=== PATIENT | male | born 1960 | race Hispanic/Latino ===

== ENCOUNTER 2017-03-01 08:07 | Emergency (ER) | payer MEDICAID ==
[2017-03-01 08:09] VITALS: RESP 18; TEMP 98.4
[2017-03-01 08:10] VITALS: BMI 31.1
[2017-03-01] MEDS ORDERED: HYDROmorphone 0.5 mg/0.5 ml ISec IVP STA ×3 (09:04→11:29)
[2017-03-01 09:24] LABS: BASO # 0.1 K/uL (0.0-0.2); BASO % 0.5 % (0.0-2.0); EOS # 0.2 K/uL (0.0-0.7); EOS % 2.4 % (0.0-4.0); HEMATOCRIT 38.1 % (35.0-51.0); LYMPH % 20.9 % (20.0-40.0); MEAN CELL VOLUME 81.7 fl (80.0-94.0); MEAN CORPUSCULAR HEMOGLOBIN 26.8 pg (27.0-31.0); MEAN CORPUSCULAR HGB CONC 32.8 g/dL (33.0-37.0); MEAN PLATELET VOLUME 9.2 fl (7.2-11.7); MONO # 0.8 K/uL (0.0-0.8); MONO % 7.9 % (0.0-10.0); NEUT # 6.7 K/uL (1.8-7.0); NEUT % 68.3 % (50.0-75.0); RED CELL DISTRIBUTION WIDTH 13.6 % (11.5-14.5); WHITE BLOOD COUNT 9.7 K/uL (4.8-10.8)
[2017-03-01 09:35] LABS: BLOOD UREA NITROGEN 17 mg/dl (9-20); CALCIUM 9.3 mg/dL (8.4-10.2); CARBON DIOXIDE 27 mmol/L (22-30); CHLORIDE 98 mmol/L (98-107); GFR AFRICAN-AMERICAN > 60; GLUCOSE,RANDOM 107 mg/dL (75-110); SODIUM 135 mmol/l (132-148)
--- NOTE | 2017-03-01 09:51 | ED PDOC ---
HPI: Headache Time Seen by Provider: 03/01/17 08:41 Chief Complaint (Nursing): Headache Chief Complaint (Provider): Headache History Per: Patient History/Exam Limitations: no limitations Onset/Duration Of Symptoms: Days (1) Pain Scale Rating Of: 10 Additional Complaint(s): Patient is 57 y/o male with a past medical history of vertigo and hypertension presenting to the emergency department for a persistent headache x 1 day status post neurosurgery x1 week ago; patient with no confusion but pain rated 10/10. Reports that he had an eight-hour long craniotomy on 02/23/17 in which an arachnoid cyst was removed, followed by three nights in the ICU, and then went home on 02/26/17 feeling ok. Denies confusion or other complaints. Prior to this surgery, the patient was on Percocet 5/325. He also quit smoking prior to the neurosurgery. Pt's pain medication (Percocet 5/325) was not increased after the surgery. No fever. Pt describes the head pain as pounding. No other complaints at this time. Neurosurgeon: Dr. Augustus Paul PCP: Dr. Alexus Adkins Past Medical History Reviewed: Historical Data, Nursing Documentation, Vital Signs Vital Signs: Last Vital Signs Temp 98.4 F 03/01/17 08:09 Pulse 95 H 03/01/17 08:09 Resp 18 03/01/17 08:09 BP 122/80 03/01/17 08:09 Pulse Ox 97 03/01/17 08:09 - Medical History PMH: Anxiety, Depression, Hiatal Hernia, HTN Denies: Chronic Kidney Disease Other PMH: Vertigo, arachnoid cyst, hearing loss - Surgical History Surgical History: Appendectomy, Hernia Repair - Family History Family History: States: Unknown Family Hx - Social History Current smoker - smoking cessation education provided: Yes Alcohol: None Drugs: Denies - Immunization History Hx Tetanus Toxoid Vaccination: No Hx Influenza Vaccination: No Hx Pneumococcal Vaccination: No - Home Medications Home Medications: Ambulatory Orders Medication Instructions Recorded Docusate [Colace] 100 mg PO Q6 PRN #0 cap 03/19/16 Ibuprofen [Motrin Tab] 200 mg PO Q6 PRN #0 tab 03/19/16 oxyCODONE/Acetaminophen [Percocet 1 ea PO Q6 PRN #0 tab 03/19/16 5/325 mg Tab] Meclizine [Meclizine*] 25 mg PO Q6 #30 tab 05/29/16 Metoclopramide [Reglan] 10 mg PO TID PRN #12 tab 05/29/16 Naproxen [Naprosyn] 500 mg PO BID PRN #14 tablet 05/29/16 Docusate Sodium [Dulcolax Stool 100 mg PO BID PRN #20 capsule 03/01/17 Softener] HYDROmorphone [Dilaudid 2 mg Tab] 2 mg PO Q6 PRN #5 tab 03/01/17 - Allergies Allergies/Adverse Reactions: Allergies Allergy/AdvReac Type Severity Reaction Status Date / Time dog dander Allergy ITCHING Verified 03/01/17 08:21 Review of Systems ROS Statement: Except As Marked, All Systems Reviewed And Found Negative Eyes: Negative for: Vision Change Cardiovascular: Negative for: Chest Pain Respiratory: Negative for: Shortness of Breath Gastrointestinal: Negative for: Nausea, Vomiting Neurological: Positive for: Headache. Negative for: Confusion Psych: Positive for: Other (aggression) Physical Exam - Reviewed Nursing Documentation Reviewed: Yes Vital Signs Reviewed: Yes - Physical Exam Appears: Positive for: Non-toxic Head Exam: Positive for: NORMAL INSPECTION (craniotomy scar is clean and healing well), NORMOCEPHALIC Skin: Positive for: Normal Color, Warm, Dry Eye Exam: Positive for: EOMI, Normal appearance, PERRL Neck: Positive for: Normal, Painless ROM, Supple Cardiovascular/Chest: Positive for: Regular Rate, Rhythm. Negative for: Murmur Respiratory: Positive for: Normal Breath Sounds. Negative for: Accessory Muscle Use, Respiratory Distress Gastrointestinal/Abdominal: Positive for: Normal Exam, Soft Back: Positive for: Normal Inspection Rectal: Positive for: Deferred Extremity: Positive for: Normal ROM. Negative for: Pedal Edema Neurologic/Psych: Positive for: Alert, chemical handler II-XII (normal), Oriented (x3). Negative for: Motor/Sensory Deficits - Laboratory Results Result Diagrams: 03/01/17 09:00 03/01/17 09:00 - ECG O2 Sat by Pulse Oximetry: 97 (RA) Pulse Ox Interpretation: Normal Medical Decision Making Medical Decision Making: Time: 08:51 Initial impression: Headache status post neurosurgery Initial plan: Head CT Scan Labs Type and Screen Dilaudid 0.5 mg IVP IV Insertion Reevaluation 09:51 CT head scan reviewed. Findings noted as follows: HEMORRHAGE: No intracranial hemorrhage. BRAIN: Patient is again seen to be status post right suboccipital craniectomy and cranioplasty. Prominent CSF seen the right cerebellopontine angle at its mid and posterior segments measuring 4.5 x 2.8 cm appearing slightly reduced in volume compared to CT 05/29/2016. Potential mass-effect or chronic shift of the cerebellum toward the right is again appreciated without abnormal density appreciated intraaxially throughout the supra and internal compartments including the brainstem. VENTRICLES: Unremarkable. No hydrocephalus. CALVARIUM: Unremarkable. PARANASAL SINUSES: Unremarkable as visualized. No significant inflammatory changes. MASTOID AIR CELLS: Unremarkable as visualized. No inflammatory changes. OTHER FINDINGS: None. IMPRESSION: Prior right suboccipital craniectomy and cranioplasty with diminished potentially postoperative CSF at the right cerebellopontine angle presumably status post resection of right CPA arachnoid cyst. Clinically correlate further. No acute intracranial findings by standard CT criteria. Follow-up MRI is available if clinically warranted. Scribe Attestation: Documented by Joanna Spann, acting as a scribe for Hugh Muniz Jr, DO. Provider Scribe Attestation: All medical record entries made by the Scribe were at my direction and personally dictated by me. I have reviewed the chart and agree that the record accurately reflects my personal performance of the history, physical exam, medical decision making, and the department course for this patient. I have also personally directed, reviewed, and agree with the discharge instructions and disposition. 10:36 AM - Pt still w/ headache after 0.5 mg Dilaudid. I will order more pain medication. Also, our locker room clerk is calling Dr. Paul's office (the neurosurgeon), as I would like some recommendations from the pt's neurosurgeon. 10:40 AM - I spoke to Dr. Paul's EMERGENCY COMMUNICATIONS OFFICER (Stella [phone]) and she requested us to fax her the CT results and she will review the CT results with Dr. Paul. 10:45 AM - Pt endorsed to Dr. Luong. Disposition - Clinical Impression Clinical Impression: Post-operative pain - Patient ED Disposition Is Patient to be Admitted: Transfer of Care - Disposition Disposition: Transfer of Care Disposition Time: 10:45 Condition: STABLE Additional Instructions: See your neurosurgeon in 1-2 days for followup. Yue in the neurosurgery office is aware of your symptoms and saw the report of your CT scan. Return to ER for any worse or new symptoms. Take minimal pain medicine as necessary. Prescriptions: Docusate Sodium [Dulcolax Stool Softener] 100 mg PO BID PRN #20 capsule PRN Reason: Constipation HYDROmorphone [Dilaudid 2 mg Tab] 2 mg PO Q6 PRN #5 tab PRN Reason: Pain, Severe (8-10) Instructions: Acute Headache (ED) Forms: [facility] [employer] [facility] ([place]) Patient Signed Over To: Bandar Luong III Handoff Comments: Follow recommendations from neurosurgery (MONTRELL Douglas).
--- NOTE | 2017-03-01 09:53 | CT ---
PROCEDURE: CT HEAD WITHOUT CONTRAST. HISTORY: Had craniotomy on Sun; now w/ severe headache COMPARISON: Head CT 05/29/2016 and IAC brain MRI 12/25/2016. TECHNIQUE: Axial computed tomography images were obtained through the head/brain without intravenous contrast. Radiation dose: Omnipaque 300, 90 cc Total exam DLP = 871 mGy-cm. This CT exam was performed using one or more of the following dose reduction techniques: Automated exposure control, adjustment of the mA and/or kV according to patient size, and/or use of iterative reconstruction technique. FINDINGS: HEMORRHAGE: No intracranial hemorrhage. BRAIN: Patient is again seen to be status post right suboccipital craniectomy and cranioplasty. Prominent CSF seen the right cerebellopontine angle at its mid and posterior segments measuring 4.5 x 2.8 cm appearing slightly reduced in volume compared to CT 05/29/2016. Potential mass-effect or chronic shift of the cerebellum toward the right is again appreciated without abnormal density appreciated intraaxially throughout the supra and internal compartments including the brainstem. VENTRICLES: Unremarkable. No hydrocephalus. CALVARIUM: Unremarkable. PARANASAL SINUSES: Unremarkable as visualized. No significant inflammatory changes. MASTOID AIR CELLS: Unremarkable as visualized. No inflammatory changes. OTHER FINDINGS: None. IMPRESSION: Prior right suboccipital craniectomy and cranioplasty with diminished potentially postoperative CSF at the right cerebellopontine angle presumably status post resection of right CPA arachnoid cyst. Clinically correlate further. No acute intracranial findings by standard CT criteria. Follow-up MRI is available if clinically warranted.
[2017-03-01 10:08] LABS: PARTIAL THROMBOPLASTIN TIME 25.4 Seconds (25.6-37.1)
[2017-03-01] MEDS ORDERED: HYDROmorphone 0.5 mg/0.5 ml ISec ONE ×2 (10:40→11:40)
[2017-03-01 11:36] VITALS: BP 122/71; PULSE 66
[2017-03-03 12:22] VITALS: O2SAT 97
== END 2017-03-01 12:16 | disposition home or self-care (01) ==
LOC: H.ER 08:07
DX: G89.18 Other acute postprocedural pain (principal); F32.9 Major depressive disorder, single episode, unspecified; F41.9 Anxiety disorder, unspecified; I10 Essential (primary) hypertension
CPT/HCPCS: 70450; 80048; 85025; 85610; 85730; 86850; 86900; 96374; 96376; 99285; J1170